=== PATIENT | female | born 1955 | race Caucasian/White ===

== ENCOUNTER 2018-01-05 17:34 | Inpatient (IN) | payer MEDICAID, OTHER ==
[~2018-01-05] VITALS: Ht 162.6 cm; Wt 62.3 kg
[2018-01-05] MEDS ORDERED: SODIUM CHLORIDE 0.9% 1,000 ML IV ONE (17:40)
[2018-01-05] MEDS ORDERED: PLEASE ENTER ALLERGIES MC SCH (18:00)
[2018-01-05] MEDS ORDERED: SODIUM CHLORIDE 0.9% 1,000ML IVBOLUS ONE (18:00)
[2018-01-05] MEDS ORDERED: SODIUM CHLORIDE FLUSH 10ML SYR IVF ONE (18:00)
[2018-01-05] MEDS ORDERED: LEVO112T2 PO (18:03)
[2018-01-05] MEDS ORDERED: ERGO500017 PO (18:03)
[2018-01-05] MEDS ORDERED: ATOR20TA9 PO (18:03)
[2018-01-05] MEDS ORDERED: INSU100C SQ-INSULIN (18:03)
[2018-01-05] MEDS ORDERED: LISI-170 PO (18:03)
[2018-01-05] MEDS ORDERED: METO25TA35 PO (18:03)
[2018-01-05] MEDS ORDERED: ANAS1TAB49 PO (18:03)
[2018-01-05] MEDS ORDERED: ONDA4TAB10 PO (18:03)
[2018-01-05] MEDS ORDERED: HYDR25TA6 PO (18:03)
[2018-01-05] MEDS ORDERED: DULO60CA7 PO (18:03)
[2018-01-05] MEDS ORDERED: PREG50CA PO (18:03)
[2018-01-05] MEDS ORDERED: IPRA30SP INH (18:03)
[2018-01-05 18:12] LABS: ALBUMIN 3.6 g/dL (3.4-5.0); ANION GAP 9 mmol/L (5-15); CALCIUM 8.4 mg/dL (8.5-10.1); CHLORIDE 91 mmol/L (98-107); CREATININE 2.38 mg/dL (0.55-1.02)
[2018-01-05] MEDS ORDERED: MORPHINE SULFATE 4 MG/ML, 1ML ONE (18:47)
[2018-01-05] MEDS ORDERED: MORPHINE SULFATE 4 MG/ML, 1ML IVPush PRN (19:00)
[2018-01-05 19:12] LABS: ACETONE, SERUM Small (20mg/dL) mg/dL (Negative)
[2018-01-05 19:30] VITALS: BP 87/47
[2018-01-05] MEDS ORDERED: ONDANSETRON ODT 4 MG PO PRN (20:30)
[2018-01-05] MEDS ORDERED: POLYETHYLENE GLYCOL 17 GM PACKET PO PRN (20:30)
[2018-01-05] MEDS ORDERED: BISACODYL 10 MG SUPP PR PRN (20:30)
[2018-01-05] MEDS ORDERED: hydrALAzine 20 MG/ML, 1ML IVPush PRN (20:30)
[2018-01-05] MEDS ORDERED: GABAPENTIN 300 MG CAPSULE PO PRN (20:30)
[2018-01-05] MEDS ORDERED: DOCUSATE 100 MG CAPSULE PO PRN (20:30)
[2018-01-05] MEDS: NICOTINE 14MG/24 HR PATCH.TD24 TD SCH (20:30)
[2018-01-05] MEDS ORDERED: morphine SULFATE 10 MG/ML, 1ML IVPush PRN (20:30)
[2018-01-05] MEDS ORDERED: ONDANSETRON 2MG/ML, 2ML IVPush PRN (20:30)
[2018-01-05] MEDS ORDERED: LABETALOL 5MG/ML, 20ML IVPush PRN (20:30)
[2018-01-05] MEDS ORDERED: PROMETHAZINE 25 MG/ML, 1ML IM PRN (20:30)
[2018-01-05 21:45] LABS: FREE T4 (FREE THYROXINE) 1.39 ng/dL (0.76-1.46); THYROID STIMULATING HORMONE 0.456 mIU/L (0.358-3.740)
[2018-01-05] MEDS: SODIUM CHLORIDE 0.9% 1,000 ML IV SCH (22:05)
[2018-01-05] MEDS: HEPARIN 5,000 UNITS/ML, 1ML SQ SCH (22:05)
[2018-01-05] MEDS: IPRATROPIUM NASAL 0.03%, 30ML NAS SCH (22:57)
[2018-01-05] MEDS: INSULIN LISPRO 100 UNITS/ML, PEN SQ-INSULIN SCH (22:59)
[2018-01-06 03:03] VITALS: BP 89/48
[2018-01-06] MEDS: SODIUM CHLORIDE 0.9% 1,000 ML IV SCH ×5 (03:03→15:12)
[2018-01-06] MEDS: INSULIN LISPRO 100 UNITS/ML, PEN SQ-INSULIN SCH ×4 (03:27→21:09)
[2018-01-06 05:37] LABS: BASOPHILS # (AUTO) 0.07 x10^3/uL (0-0.1); BASOPHILS % (AUTO) 1 % (0-1); EOSINOPHILS # (AUTO) 0.06 x10^3/uL (0-0.4); EOSINOPHILS % (AUTO) 1 % (1-7); LYMPHOCYTES # (AUTO) 1.36 x10^3/uL (1-3.4); LYMPHOCYTES % (AUTO) 12 % (22-44); MD NO; MEAN CORPUSCULAR HEMOGLOBIN 33.8 pg (27.0-34.8); MEAN CORPUSCULAR HGB CONC 35.2 g/dL (32.4-35.8); MEAN CORPUSCULAR VOLUME 96.1 fL (80-100); MONOCYTES # (AUTO) 0.77 x10^3/uL (0.2-0.8); MONOCYTES % (AUTO) 7 % (2-9); NEUTROPHILS # (AUTO) 8.72 x10^3/uL (1.8-6.8); NEUTROPHILS % (AUTO) 79 % (42-75); PLATELET COUNT 174 x10^3/uL (130-400); RED BLOOD COUNT 3.28 x10^6/uL (3.82-5.3)
[2018-01-06 05:47] LABS: ALBUMIN 3.1 g/dL (3.4-5.0); ANION GAP 12 mmol/L (5-15); CALCIUM 8.1 mg/dL (8.5-10.1); CHLORIDE 104 mmol/L (98-107); CHOLESTEROL, TOTAL 124 mg/dL (140-239)
[2018-01-06] MEDS: LEVOTHYROXINE 112 MCG TABLET PO SCH (06:00)
[2018-01-06 06:04] LABS: ALANINE AMINOTRANSFERASE 21 U/L (12-78); ALKALINE PHOSPHATASE 78 U/L (45-117); BILIRUBIN,TOTAL 0.5 mg/dL (0.2-1.0); CHOL/HDL RATIO 1.3; CREATININE 1.58 mg/dL (0.55-1.02); HDL CHOL % 77 % (28-40); HDL CHOLESTEROL (DIRECT) 96 mg/dL (40-60); LDL CHOLESTEROL,CALCULATED 14 mg/dL (54-169); LDL/HDL RATIO 0.1 (0.5-3.0); TOTAL PROTEIN 5.5 g/dL (6.4-8.2); TRIGLYCERIDES 68 mg/dL (50-200); VLDL CHOLESTEROL 14 mg/dL (0-25)
[2018-01-06] MEDS: HEPARIN 5,000 UNITS/ML, 1ML SQ SCH ×3 (06:14→22:00)
[2018-01-06 07:39] VITALS: BP 122/68
[2018-01-06 08:44] VITALS: BP 107/63
[2018-01-06] MEDS: ATORVASTATIN 20 MG TABLET PO SCH (08:55)
[2018-01-06] MEDS: ANASTROZOLE 1 MG TABLET PO SCH (08:55)
[2018-01-06] MEDS: DULOXETINE 30 MG CAPSULE.DR PO SCH (08:55)
[2018-01-06] MEDS: IPRATROPIUM NASAL 0.03%, 30ML NAS SCH ×3 (08:57→20:38)
[2018-01-06 13:32] VITALS: BP 101/56
[2018-01-06 18:56] VITALS: BP 93/53
[2018-01-06] MEDS: NICOTINE 14MG/24 HR PATCH.TD24 TD SCH (20:30)
[2018-01-07 01:16] VITALS: BP 113/61
[2018-01-07] MEDS: INSULIN LISPRO 100 UNITS/ML, PEN SQ-INSULIN SCH ×4 (02:55→21:21)
[2018-01-07] MEDS: LEVOTHYROXINE 112 MCG TABLET PO SCH (05:53)
[2018-01-07] MEDS: HEPARIN 5,000 UNITS/ML, 1ML SQ SCH ×3 (05:53→21:22)
[2018-01-07 06:09] LABS: ALANINE AMINOTRANSFERASE 19 U/L (12-78); ALBUMIN 2.7 g/dL (3.4-5.0); ANION GAP 7 mmol/L (5-15); CALCIUM 8.1 mg/dL (8.5-10.1); CHLORIDE 105 mmol/L (98-107); CREATININE 1.23 mg/dL (0.55-1.02)
[2018-01-07 06:11] LABS: ALKALINE PHOSPHATASE 74 U/L (45-117); BILIRUBIN,TOTAL 0.8 mg/dL (0.2-1.0); TOTAL PROTEIN 5.2 g/dL (6.4-8.2)
[2018-01-07 06:48] LABS: BASOPHILS # (AUTO) 0.04 x10^3/uL (0-0.1); BASOPHILS % (AUTO) 1 % (0-1); EOSINOPHILS # (AUTO) 0.15 x10^3/uL (0-0.4); EOSINOPHILS % (AUTO) 3 % (1-7); LYMPHOCYTES # (AUTO) 1.08 x10^3/uL (1-3.4); LYMPHOCYTES % (AUTO) 19 % (22-44); MD NO; MEAN CORPUSCULAR HEMOGLOBIN 34.4 pg (27.0-34.8); MEAN CORPUSCULAR HGB CONC 35.3 g/dL (32.4-35.8); MEAN CORPUSCULAR VOLUME 97.5 fL (80-100); MEAN PLATELET VOLUME 7.2 fL (7.4-10.4); MONOCYTES # (AUTO) 0.51 x10^3/uL (0.2-0.8); MONOCYTES % (AUTO) 9 % (2-9); NEUTROPHILS # (AUTO) 3.85 x10^3/uL (1.8-6.8); NEUTROPHILS % (AUTO) 69 % (42-75); PLATELET COUNT 128 x10^3/uL (130-400); RED BLOOD COUNT 3.23 x10^6/uL (3.82-5.3); RED CELL DISTRIBUTION WIDTH 13.7 % (9.6-15.2)
[2018-01-07 08:14] VITALS: BP 145/74
[2018-01-07] MEDS: IPRATROPIUM NASAL 0.03%, 30ML NAS SCH ×4 (08:52→21:22)
[2018-01-07] MEDS: ATORVASTATIN 20 MG TABLET PO SCH (08:53)
[2018-01-07] MEDS: DULOXETINE 30 MG CAPSULE.DR PO SCH (08:53)
[2018-01-07] MEDS: ANASTROZOLE 1 MG TABLET PO SCH (08:54)
[2018-01-07] MEDS: SODIUM CHLORIDE 0.9% 1,000 ML IV SCH ×2 (11:00→21:22)
[2018-01-07 13:25] VITALS: BP 137/77
[2018-01-07] MEDS ORDERED: DEXTROSE 4 GM TAB.CHEW PO PRN (15:00)
[2018-01-07] MEDS ORDERED: DEXTROSE 50%, 50ML SYRINGE IVPush PRN (15:00)
[2018-01-07] MEDS ORDERED: GLUCAGON 1 MG IM PRN (15:00)
[2018-01-07 19:17] VITALS: BP 123/75
[2018-01-07] MEDS: NICOTINE 14MG/24 HR PATCH.TD24 TD SCH (20:30)
[2018-01-07] MEDS: SODIUM CHLORIDE FLUSH 10ML SYR IVF SCH (21:22)
[2018-01-08 00:57] VITALS: BP 127/77
[2018-01-08] MEDS: INSULIN LISPRO 100 UNITS/ML, PEN SQ-INSULIN SCH ×2 (02:56→08:45)
[2018-01-08] MEDS: HEPARIN 5,000 UNITS/ML, 1ML SQ SCH (04:58)
[2018-01-08] MEDS: LEVOTHYROXINE 112 MCG TABLET PO SCH (05:11)
[2018-01-08 05:51] LABS: CHLORIDE 102 mmol/L (98-107)
[2018-01-08 06:10] LABS: ALANINE AMINOTRANSFERASE 20 U/L (12-78); ALBUMIN 2.7 g/dL (3.4-5.0); ALKALINE PHOSPHATASE 77 U/L (45-117); ANION GAP 8 mmol/L (5-15); BILIRUBIN,TOTAL 0.6 mg/dL (0.2-1.0); CALCIUM 7.9 mg/dL (8.5-10.1); TOTAL PROTEIN 5.1 g/dL (6.4-8.2)
[2018-01-08] MEDS: SODIUM CHLORIDE 0.9% 1,000 ML IV SCH (07:00)
[2018-01-08 07:21] VITALS: BP 148/80
[2018-01-08 08:24] LABS: BASOPHILS # (AUTO) 0.01 x10^3/uL (0-0.1); BASOPHILS % (AUTO) 0 % (0-1); EOSINOPHILS # (AUTO) 0.09 x10^3/uL (0-0.4); EOSINOPHILS % (AUTO) 2 % (1-7); LYMPHOCYTES # (AUTO) 0.73 x10^3/uL (1-3.4); LYMPHOCYTES % (AUTO) 19 % (22-44); MD NO; MEAN CORPUSCULAR HEMOGLOBIN 34.1 pg (27.0-34.8); MEAN CORPUSCULAR HGB CONC 35.2 g/dL (32.4-35.8); MEAN CORPUSCULAR VOLUME 96.8 fL (80-100); MEAN PLATELET VOLUME 7.1 fL (7.4-10.4); MONOCYTES # (AUTO) 0.34 x10^3/uL (0.2-0.8); MONOCYTES % (AUTO) 9 % (2-9); NEUTROPHILS % (AUTO) 70 % (42-75); PLATELET COUNT 116 x10^3/uL (130-400); RED BLOOD COUNT 3.13 x10^6/uL (3.82-5.3)
[2018-01-08] MEDS: IPRATROPIUM NASAL 0.03%, 30ML NAS SCH (08:45)
[2018-01-08] MEDS: SODIUM CHLORIDE FLUSH 10ML SYR IVF SCH (08:45)
[2018-01-08] MEDS: DULOXETINE 30 MG CAPSULE.DR PO SCH (08:46)
[2018-01-08] MEDS: ATORVASTATIN 20 MG TABLET PO SCH (08:46)
[2018-01-08] MEDS: ANASTROZOLE 1 MG TABLET PO SCH (08:48)
== END 2018-01-08 12:22 | disposition home or self-care (01) | DRG 438 ==
LOC: ED 19:26 → EDIP 19:47 → 3NE 19:55 → DCLOUNGE 01-08 12:01
PROVIDERS: ADMIT Internal Medicine; ATTEND Internal Medicine
DX: K85.20 Alcohol induced acute pancreatitis without necrosis or infection (principal); N17.0 Acute kidney failure with tubular necrosis; E87.1 Hypo-osmolality and hyponatremia; E11.65 Type 2 diabetes mellitus with hyperglycemia; I95.9 Hypotension, unspecified; E05.00 Thyrotoxicosis with diffuse goiter without thyrotoxic crisis or storm; E03.9 Hypothyroidism, unspecified; E78.5 Hyperlipidemia, unspecified; E86.0 Dehydration; Z96.41 Presence of insulin pump (external) (internal); F17.210 Nicotine dependence, cigarettes, uncomplicated; E11.40 Type 2 diabetes mellitus with diabetic neuropathy, unspecified; I10 Essential (primary) hypertension; J44.9 Chronic obstructive pulmonary disease, unspecified; K21.9 Gastro-esophageal reflux disease without esophagitis; Z79.4 Long term (current) use of insulin; Z79.811 Long term (current) use of aromatase inhibitors; Z85.3 Personal history of malignant neoplasm of breast; Z90.710 Acquired absence of both cervix and uterus; Z92.21 Personal history of antineoplastic chemotherapy; Z92.3 Personal history of irradiation; Z88.5 Allergy status to narcotic agent
CPT/HCPCS: 36415; 71045; 74181; 76700; 80048; 80053; 80061; 82010; 82040; 82306; 82607; 82962; 83690; 83735; 84100; 84439; 84443; 85025; 93005; 96361; 96374; 99285; G0378; J1644; J1815; J2270; J7030